=== PATIENT | male | born 1950 | race African-American/Black ===

== ENCOUNTER 2017-06-03 11:32 | Inpatient (IN) | payer OTHER ==
[~2017-06-03] VITALS: Ht 193 cm; Wt 105.7 kg
[2017-06-03] MEDS ORDERED: ASPIRIN 81MG TABLET PO STA (11:56)
[2017-06-03 12:34] LABS: BASOPHILS % 0.7 % (0.0-2.0); EOSINOPHILS % 1.9 % (0.0-5.0); HEMATOCRIT. 34.7 % (42.0-52.0); HEMOGLOBIN. 12.2 g/dL (14.0-18.0); LYMPHOCYTES % 15.2 % (20.0-50.0); MEAN CORPUSCULAR HEMOGLOBIN 25.3 pg (28.0-32.0); MEAN CORPUSCULAR VOLUME 71.6 fL (80.0-94.0); MEAN PLATELET VOLUME 10.4 fl (7.4-10.4); MONOCYTES % 6.1 % (2.0-8.0); NEUTROPHILS % 76.1 % (40.0-76.0); PLATELET 133 x1000/uL (130-400); RED BLOOD CELL COUNT 4.84 mill/uL (4.7-6.1); RED CELL DISTRIBUTION WIDTH 16.6 % (11.6-14.6)
[2017-06-03 12:43] LABS: PROTHROMBIN TIME 10.7 sec (9.4-11.6)
[2017-06-03 12:48] LABS: CARBON DIOXIDE 30 mEq/L (21-32); CHLORIDE 102 mEq/L (98-107); CREATINE KINASE 92 IU/L (39-308); TROPONIN I 0.27 ng/mL (0.00-0.04)
[2017-06-03 12:49] LABS: CREATINE KINASE MB FRACTION 0.9 ng/mL (0.5-3.6)
[2017-06-03] MEDS ORDERED: INSULIN REGULAR (HUMULIN R) 300UNITS/3ML SUBCUT ONE (13:00)
[2017-06-03] MEDS ORDERED: POTASSIUM CHLORIDE 20MEQ TABLET SR PO ONE (13:00)
[2017-06-03 16:00] VITALS: BP 154/99
[2017-06-03 16:02] VITALS: BP 154/99
[2017-06-03] MEDS ORDERED: AMLO5TAB4 PO (16:18)
[2017-06-03] MEDS ORDERED: HYDR25TA PO (16:18)
[2017-06-03] MEDS ORDERED: HYDR-4135 PO (16:18)
[2017-06-03] MEDS ORDERED: SIMV40TA5 PO (16:18)
[2017-06-03] MEDS ORDERED: POTA20TA82 PO (16:18)
[2017-06-03] MEDS ORDERED: RANI150C12 PO (16:18)
[2017-06-03] MEDS ORDERED: LOSA50TA20 PO (16:18)
[2017-06-03] MEDS ORDERED: VITAMIN D3 PO (16:18)
[2017-06-03] MEDS ORDERED: CLON0.2T PO (16:18)
[2017-06-03] MEDS ORDERED: ISOS10TA2 PO (16:18)
[2017-06-03] MEDS ORDERED: LABETALOL PO (16:18)
[2017-06-03] MEDS ORDERED: DEXTROSE 50% WATER 50ML SYRINGE IV PRN ×2 (17:45→22:00)
[2017-06-03] MEDS ORDERED: ENOXAPARIN 40MG/0.4ML SYR SUBCUT SCH (17:45)
[2017-06-03] MEDS ORDERED: MORPHINE SULFATE 2 MG/ML CPJ (NOT FOR IM USE) IV PRN (17:45)
[2017-06-03] MEDS: BLOOD SUGAR DIAGNOSTIC STRIP TEST SCH ×2 (18:07→21:00)
[2017-06-03] MEDS ORDERED: LANTUSUD SUBCUT (18:12)
[2017-06-03] MEDS: LOSARTAN POTASSIUM 50 MG TABLET PO SCH (18:13)
[2017-06-03 20:00] VITALS: BP 163/104
[2017-06-03] MEDS: ENOXAPARIN 30MG/0.3ML SYR SUBCUT SCH (20:48)
[2017-06-03] MEDS: METOPROLOL TARTRATE 25MG TABLET PO SCH (21:15)
[2017-06-03] MEDS ORDERED: MORPHINE SULFATE 4 MG/ML CPJ (NOT FOR IM USE) IV PRN (21:45)
[2017-06-03] MEDS: POTASSIUM CHLORIDE 10MEQ TABLET SR PO SCH (21:54)
[2017-06-03] MEDS: FUROSEMIDE 40MG/4ML VIAL IVP SCH (21:54)
[2017-06-03] MEDS: INSULIN DETEMIR UD 100 UNITS/ML SYR SUBCUT SCH (22:24)
[2017-06-03 23:36] LABS: CREATINE KINASE MB FRACTION 4.6 ng/mL (0.5-3.6)
[2017-06-04] VITALS: BP 160/111
[2017-06-04 00:13] LABS: TROPONIN I 2.7 ng/mL (0.00-0.04)
[2017-06-04 04:00] VITALS: BP 179/116
[2017-06-04 07:21] LABS: CREATINE KINASE MB FRACTION 3.2 ng/mL (0.5-3.6)
[2017-06-04] MEDS: BLOOD SUGAR DIAGNOSTIC STRIP TEST SCH ×4 (07:42→21:55)
[2017-06-04 07:48] LABS: TROPONIN I 2.6 ng/mL (0.00-0.04)
[2017-06-04 08:00] VITALS: BP 183/115
[2017-06-04] MEDS: FUROSEMIDE 40MG/4ML VIAL IVP SCH (08:43)
[2017-06-04] MEDS: INSULIN LISPRO 100 UNITS/ML SUBCUT SCH ×4 (08:43→22:02)
[2017-06-04] MEDS: METOPROLOL TARTRATE 25MG TABLET PO SCH ×2 (08:44→21:53)
[2017-06-04] MEDS: POTASSIUM CHLORIDE 10MEQ TABLET SR PO SCH (08:44)
[2017-06-04] MEDS: LOSARTAN POTASSIUM 50 MG TABLET PO SCH ×2 (08:44→17:57)
[2017-06-04] MEDS: ASPIRIN 325MG EC TABLET PO SCH (08:44)
[2017-06-04] MEDS: ENOXAPARIN 30MG/0.3ML SYR SUBCUT SCH (08:45)
[2017-06-04] MEDS: INSULIN DETEMIR UD 100 UNITS/ML SYR SUBCUT SCH ×2 (09:01→21:58)
[2017-06-04 12:00] VITALS: BP 160/106
[2017-06-04] MEDS: CLONIDINE 0.2MG TABLET PO SCH ×2 (13:32→21:53)
[2017-06-04 16:49] VITALS: BP 146/99
[2017-06-04 19:54] VITALS: BP 179/111
[2017-06-04] MEDS ORDERED: ENOXAPARIN 100MG/ML SYR SUBCUT NR (21:00)
[2017-06-04] MEDS: AMLODIPINE 5MG TABLET PO SCH (21:53)
[2017-06-04] MEDS: ATORVASTATIN CALCIUM 40MG TABLET PO SCH (21:53)
[2017-06-05] VITALS (7 sets, daily range): BP systolic 142–189; BP diastolic 93–109
[2017-06-05] MEDS: CLONIDINE 0.2MG TABLET PO SCH ×3 (06:26→22:41)
[2017-06-05] MEDS: BLOOD SUGAR DIAGNOSTIC STRIP TEST SCH ×4 (06:27→21:00)
[2017-06-05 06:42] LABS: BASOPHILS % 0.4 % (0.0-2.0); EOSINOPHILS % 2.6 % (0.0-5.0); HEMOGLOBIN. 13.8 g/dL (14.0-18.0); LYMPHOCYTES % 25.6 % (20.0-50.0); MEAN CORPUSCULAR HEMOGLOBIN 25.4 pg (28.0-32.0); MEAN PLATELET VOLUME 10.2 fl (7.4-10.4); MONOCYTES % 8.9 % (2.0-8.0); NEUTROPHILS % 62.5 % (40.0-76.0); PLATELET 134 x1000/uL (130-400); RED BLOOD CELL COUNT 5.41 mill/uL (4.7-6.1)
[2017-06-05 06:53] LABS: CARBON DIOXIDE 31 mEq/L (21-32); CHLORIDE 105 mEq/L (98-107)
[2017-06-05] MEDS: LOSARTAN POTASSIUM 50 MG TABLET PO SCH ×2 (08:39→16:04)
[2017-06-05] MEDS: POTASSIUM CHLORIDE 10MEQ TABLET SR PO SCH (08:39)
[2017-06-05] MEDS: ASPIRIN 325MG EC TABLET PO SCH (08:39)
[2017-06-05] MEDS: INSULIN LISPRO 100 UNITS/ML SUBCUT SCH ×4 (08:39→22:51)
[2017-06-05] MEDS: AMLODIPINE 5MG TABLET PO SCH ×2 (08:40→22:41)
[2017-06-05] MEDS: METOPROLOL TARTRATE 25MG TABLET PO SCH ×2 (08:40→22:41)
[2017-06-05] MEDS: INSULIN DETEMIR UD 100 UNITS/ML SYR SUBCUT SCH ×2 (09:28→22:52)
[2017-06-05] MEDS ORDERED: GADOBENATE DIMEGLUMINE 529 MG/ML 10ML IV ONE (11:36)
[2017-06-05] MEDS: SODIUM CHL 0.45% + KCL 20MEQ/L 1,000 ML IV SCH (14:38)
[2017-06-05 19:03] LABS: CARBON DIOXIDE 31 mEq/L (21-32); CHLORIDE 105 mEq/L (98-107)
[2017-06-05] MEDS: ATORVASTATIN CALCIUM 40MG TABLET PO SCH (22:41)
[2017-06-06 04:55] VITALS: BP 153/98
[2017-06-06] MEDS: CLONIDINE 0.2MG TABLET PO SCH ×3 (06:53→22:27)
[2017-06-06] MEDS: BLOOD SUGAR DIAGNOSTIC STRIP TEST SCH ×4 (06:53→21:20)
[2017-06-06] MEDS: INSULIN LISPRO 100 UNITS/ML SUBCUT SCH ×4 (07:50→21:27)
[2017-06-06 08:00] VITALS: BP 188/107
[2017-06-06] MEDS: AMLODIPINE 5MG TABLET PO SCH ×2 (08:54→21:14)
[2017-06-06] MEDS: ASPIRIN 325MG EC TABLET PO SCH (08:54)
[2017-06-06] MEDS: POTASSIUM CHLORIDE 10MEQ TABLET SR PO SCH (08:54)
[2017-06-06] MEDS: LOSARTAN POTASSIUM 50 MG TABLET PO SCH ×2 (08:59→18:35)
[2017-06-06] MEDS: INSULIN DETEMIR UD 100 UNITS/ML SYR SUBCUT SCH ×2 (09:09→21:27)
[2017-06-06] MEDS: METOPROLOL TARTRATE 25MG TABLET PO SCH ×2 (10:40→22:27)
[2017-06-06] MEDS: SODIUM CHL 0.45% + KCL 20MEQ/L 1,000 ML IV SCH (11:13)
[2017-06-06 12:00] VITALS: BP 176/108
[2017-06-06] MEDS: CLOPIDOGREL 75MG TABLET PO SCH (12:59)
[2017-06-06 16:00] VITALS: BP 131/90
[2017-06-06 20:47] VITALS: BP 160/106
[2017-06-06] MEDS: HYDRALAZINE HCL 100MG TABLET PO SCH (21:14)
[2017-06-06] MEDS: ATORVASTATIN CALCIUM 40MG TABLET PO SCH (21:14)
[2017-06-07 00:23] VITALS: BP 161/111
[2017-06-07 04:00] VITALS: BP 147/91
[2017-06-07] MEDS: CLONIDINE 0.2MG TABLET PO SCH ×3 (06:08→23:44)
[2017-06-07] MEDS: BLOOD SUGAR DIAGNOSTIC STRIP TEST SCH ×4 (06:11→21:37)
[2017-06-07 08:00] VITALS: BP 155/101
[2017-06-07] MEDS: INSULIN LISPRO 100 UNITS/ML SUBCUT SCH ×4 (08:36→21:44)
[2017-06-07] MEDS ORDERED: LEVETIRACETAM 500MG PREMIX 100 ML IV ONE (09:00)
[2017-06-07] MEDS ORDERED: LEVETIRACETAM 500MG in SODIUM CHLORIDE 0.9% 100ML IV NR (10:00)
[2017-06-07] MEDS: LOSARTAN POTASSIUM 50 MG TABLET PO SCH ×2 (10:59→18:09)
[2017-06-07] MEDS: ASPIRIN 81MG EC TABLET PO SCH (10:59)
[2017-06-07] MEDS: HYDRALAZINE HCL 100MG TABLET PO SCH ×2 (11:02→21:28)
[2017-06-07] MEDS: METOPROLOL TARTRATE 25MG TABLET PO SCH ×2 (11:04→21:29)
[2017-06-07] MEDS: AMLODIPINE 5MG TABLET PO SCH ×2 (11:04→21:29)
[2017-06-07] MEDS: POTASSIUM CHLORIDE 10MEQ TABLET SR PO SCH (11:07)
[2017-06-07] MEDS: CLOPIDOGREL 75MG TABLET PO SCH (11:08)
[2017-06-07] MEDS: INSULIN DETEMIR UD 100 UNITS/ML SYR SUBCUT SCH ×2 (11:49→21:44)
[2017-06-07] MEDS: ENOXAPARIN 40MG/0.4ML SYR SUBCUT SCH (11:50)
[2017-06-07] MEDS: SODIUM CHL 0.45% + KCL 20MEQ/L 1,000 ML IV SCH (14:48)
[2017-06-07 20:00] VITALS: BP 151/97
[2017-06-07] MEDS: LEVETIRACETAM 500 MG in SODIUM CHLORIDE 0.9% 100 ML IV SCH (21:29)
[2017-06-07] MEDS: ATORVASTATIN CALCIUM 40MG TABLET PO SCH (21:29)
[2017-06-07 23:40] VITALS: BP 150/95
[2017-06-08] MEDS: SODIUM CHL 0.45% + KCL 20MEQ/L 1,000 ML IV SCH ×2 (02:15→10:03)
[2017-06-08 04:00] VITALS: BP_SYST 152; BP_SYST 156; BP_DIAS 96
[2017-06-08] MEDS: CLONIDINE 0.2MG TABLET PO SCH ×2 (06:23→14:00)
[2017-06-08] MEDS: BLOOD SUGAR DIAGNOSTIC STRIP TEST SCH ×3 (06:27→17:20)
[2017-06-08 08:00] VITALS: BP 134/96
[2017-06-08] MEDS: LOSARTAN POTASSIUM 50 MG TABLET PO SCH ×2 (09:58→17:00)
[2017-06-08] MEDS: CLOPIDOGREL 75MG TABLET PO SCH (09:58)
[2017-06-08] MEDS: METOPROLOL TARTRATE 25MG TABLET PO SCH (09:59)
[2017-06-08] MEDS: POTASSIUM CHLORIDE 10MEQ TABLET SR PO SCH (09:59)
[2017-06-08] MEDS: ASPIRIN 81MG EC TABLET PO SCH (09:59)
[2017-06-08] MEDS: HYDRALAZINE HCL 100MG TABLET PO SCH (10:00)
[2017-06-08] MEDS: ENOXAPARIN 40MG/0.4ML SYR SUBCUT SCH (10:03)
[2017-06-08] MEDS: INSULIN LISPRO 100 UNITS/ML SUBCUT SCH ×3 (10:04→17:50)
[2017-06-08] MEDS: INSULIN DETEMIR UD 100 UNITS/ML SYR SUBCUT SCH (10:07)
[2017-06-08] MEDS: LEVETIRACETAM 500 MG in SODIUM CHLORIDE 0.9% 100 ML IV SCH (10:07)
[2017-06-08] MEDS: AMLODIPINE 5MG TABLET PO SCH (10:12)
[2017-06-08 12:00] VITALS: BP 151/98
[2017-06-08 16:00] VITALS: BP 167/101
== END 2017-06-08 18:50 | disposition home or self-care (01) | DRG 280 ==
LOC: ER 11:56 → OBSVTOIN 12:34 → INTOOBSV 12:34 → 6WST 12:34 → EDBEDREQ 12:37 → ENRESERV 13:36
PROVIDERS: ADMIT Internal Medicine; ATTEND Internal Medicine
DX: I21.4 Non-ST elevation (NSTEMI) myocardial infarction (principal); I50.31 Acute diastolic (congestive) heart failure; E11.65 Type 2 diabetes mellitus with hyperglycemia; I69.320 Aphasia following cerebral infarction; I11.0 Hypertensive heart disease with heart failure; I50.9 Heart failure, unspecified; E78.5 Hyperlipidemia, unspecified; I25.10 Atherosclerotic heart disease of native coronary artery without angina pectoris; E78.00 Pure hypercholesterolemia, unspecified; I25.2 Old myocardial infarction
CPT/HCPCS: 36415; 70450; 70544; 70547; 70553; 71010; 80048; 80053; 80061; 82550; 82553; 82962; 83690; 83880; 84443; 84484; 85025; 85610; 85730; 93005; 93306; 93970; 96372; 97110; 97162; 97167; 97530; 99291; A9577; C1893; J1650; J1815; J1940; J1953; J3480; J7050